=== PATIENT | female | born 1955 | race American Indian/Alaskan Native ===

== ENCOUNTER 2017-08-06 17:27 | Inpatient (IN) | payer OTHER ==
[2017-08-06] MEDS ORDERED: TYLENOL PO ONE (17:35)
[2017-08-06] MEDS ORDERED: TYLENOL ONE (17:35)
[2017-08-06] MEDS ORDERED: DUONEB *Not for PRN Use IH ONE ×2 (18:17→19:27)
--- NOTE | 2017-08-06 18:18 | Emergency Department Report ---
ED Shortness of Breath HPI - General Chief Complaint: Weakness Stated Complaint: N/V X 2 DAYS/FLU LIKE SYMPTOMS Time Seen by Provider: 08/06/17 18:10 Source: patient, EMS Mode of arrival: Stretcher Limitations: No Limitations - History of Present Illness MD Complaint: shortness of breath, cough -: Sudden, days(s) (3 days ago) Severity: severe Consistency: constant Improves With: oxygen, rest Worsens With: lying flat, exertion, coughing, inspiration Context: recent URI Associated Symptoms: fever, cough, sputum production, nausea/vomiting Treatments Prior to Arrival: none - Related Data Home Oxygen Therapy: No Allergies Allergy/AdvReac Type Severity Reaction Status Date / Time Penicillins Allergy Unknown Verified 08/06/17 17:56 ED Review of Systems ROS: Stated complaint: N/V X 2 DAYS/FLU LIKE SYMPTOMS Other details as noted in HPI Constitutional: chills, fever, malaise Eyes: denies: eye pain, eye discharge, vision change ENT: throat pain, congestion. denies: ear pain Respiratory: cough, orthopnea, shortness of breath, wheezing Cardiovascular: denies: chest pain, palpitations Endocrine: no symptoms reported Gastrointestinal: nausea, vomiting. denies: abdominal pain, diarrhea Genitourinary: denies: urgency, dysuria, discharge Musculoskeletal: denies: back pain, joint swelling, arthralgia Skin: denies: rash, lesions Neurological: denies: headache, weakness, paresthesias Psychiatric: denies: anxiety, depression Hematological/Lymphatic: denies: easy bleeding, easy bruising ED Past Medical Hx - Past Medical History Previous Medical History?: Yes Additional medical history: bone spurs, chronic back pain - Surgical History Past Surgical History?: Yes Additional Surgical History: back sx, tubal ligation - Family History Family history: hypertension - Social History Smoking Status: Never Smoker Substance Use Type: None ED Physical Exam - General Limitations: No Limitations General appearance: alert, in no apparent distress - Head Head exam: Present: atraumatic, normocephalic - Eye Eye exam: Present: normal appearance - ENT ENT exam: Present: mucous membranes dry - Neck Neck exam: Present: normal inspection - Respiratory Respiratory exam: Present: wheezes - Cardiovascular Cardiovascular Exam: Present: regular rate, normal rhythm. Absent: systolic murmur, diastolic murmur, rubs, gallop - GI/Abdominal GI/Abdominal exam: Present: soft, normal bowel sounds - Extremities Exam Extremities exam: Present: normal inspection - Back Exam Back exam: Present: normal inspection - Neurological Exam Neurological exam: Present: alert, oriented X3 - Psychiatric Psychiatric exam: Present: normal affect, normal mood - Skin Skin exam: Present: warm, dry, intact, normal color. Absent: rash ED Course Vital Signs 08/06/17 08/06/17 08/06/17 17:40 17:43 17:45 Temperature 102.4 F H Pulse Rate 74 74 73 Pulse Rate [ Anterior Bilateral Throughout] Respiratory 20 12 21 Rate Respiratory Rate [Anterior Bilateral Throughout] Blood Pressure 160/81 160/81 157/130 O2 Sat by Pulse 92 96 Oximetry 08/06/17 08/06/17 08/06/17 18:00 18:16 18:30 Temperature Pulse Rate 81 68 79 Pulse Rate [ Anterior Bilateral Throughout] Respiratory 14 17 17 Rate Respiratory Rate [Anterior Bilateral Throughout] Blood Pressure 157/130 144/80 144/80 O2 Sat by Pulse 96 94 95 Oximetry 08/06/17 08/06/17 08/06/17 18:35 18:46 18:51 Temperature Pulse Rate 73 Pulse Rate [ 69 70 Anterior Bilateral Throughout] Respiratory 13 Rate Respiratory 18 18 Rate [Anterior Bilateral Throughout] Blood Pressure O2 Sat by Pulse 94 Oximetry 08/06/17 08/06/17 08/06/17 19:00 19:20 19:30 Temperature Pulse Rate 85 80 78 Pulse Rate [ Anterior Bilateral Throughout] Respiratory 13 13 16 Rate Respiratory Rate [Anterior Bilateral Throughout] Blood Pressure 144/80 156/82 O2 Sat by Pulse 97 94 92 Oximetry 08/06/17 08/06/17 08/06/17 19:45 19:46 20:00 Temperature Pulse Rate 83 87 Pulse Rate [ 87 Anterior Bilateral Throughout] Respiratory 19 16 Rate Respiratory 14 Rate [Anterior Bilateral Throughout] Blood Pressure 149/82 149/82 O2 Sat by Pulse 93 89 Oximetry 08/06/17 08/06/17 08/06/17 20:01 20:03 20:04 Temperature 100 F H Pulse Rate Pulse Rate [ 92 H Anterior Bilateral Throughout] Respiratory 18 Rate Respiratory 18 Rate [Anterior Bilateral Throughout] Blood Pressure O2 Sat by Pulse 91 92 Oximetry 08/06/17 08/06/17 20:15 20:30 Temperature Pulse Rate 84 89 Pulse Rate [ Anterior Bilateral Throughout] Respiratory 25 H 25 H Rate Respiratory Rate [Anterior Bilateral Throughout] Blood Pressure 152/78 164/88 O2 Sat by Pulse Oximetry - Reevaluation(s) Reevaluation #1: 08/06/17 19:15... Patient is still wheezing bilaterally. Status post Medrol and nebs will order a mag run and repeat DuoNeb. And consult hospitalist for admission Reevaluation #2: Discussed case with hospitalist. Patient ready for admission. 08/06/17 21:24 ED Medical Decision Making - Lab Data Result diagrams: 08/06/17 18:15 08/06/17 18:15 - EKG Data -: EKG Interpreted by Mo EKG shows normal: sinus rhythm Rate: normal - EKG Data Interpretation: no acute changes - Radiology Data Radiology results: report reviewed, image reviewed - Medical Decision Making All labs and results discussed with patient. Patient agreed to be admitted. Hospitalist consult for admission. Hospitalist agreed to admit - Differential Diagnosis flu/ bronchitis. Pneumonia. Fever. URI. Critical Care Time: Yes Critical care attestation.: If time is entered above; I have spent that time in minutes in the direct care of this critically ill patient, excluding procedure time. Critical Care Time: 30 minutes spent for critical care time ED Disposition Clinical Impression: Hypoxia, Fever, Shortness of breath, Wheeze, Bronchitis, Flu Disposition: 09 OP ADMIT IP TO THIS HOSP Is pt being admited?: Yes Does the pt Need Aspirin: No Condition: Serious Time of Disposition: 19:28
[2017-08-06 18:42] LABS: Hematocrit 39.1 % (30.3-42.9); Hemoglobin 13.2 gm/dl (10.1-14.3); Mean Corpuscular HGB Conc 34 % (30-34); Mean Corpuscular Hemoglobin 29 pg (28-32); Mean Corpuscular Volume 85 fl (79-97); Platelet Count 218 K/mm3 (140-440); Red Cell Distribution Width 13.7 % (13.2-15.2)
[2017-08-06 18:56] LABS: BUN/Creatinine Ratio 25; Blood Urea Nitrogen 10 mg/dL (7-17); Calcium 8.7 mg/dL (8.4-10.2); Hemolysis Index 2
--- NOTE | 2017-08-06 19:09 | XRay Report ---
FINAL REPORT EXAM: XR CHEST 1V AP HISTORY: Shortness of breath TECHNIQUE: upright single view chest PRIORS: None. FINDINGS: Cardiac and mediastinal contours are unremarkable. No focal pulmonary infiltrate is identified. No pleural fluid collection seen. Pulmonary vasculature is unremarkable. IMPRESSION: Negative single-view chest
[2017-08-06] MEDS ORDERED: MAGNESIUM SULFATE 2GM/50ML 2 GM/50 ML BAG IV ONE (19:26)
[2017-08-06 19:30] LABS: Band Neutrophils # (Manual) 0.5 K/mm3; Eosinophils % (Manual) 0 % (0.0-4.3); Total Cells Counted 100
[2017-08-06 19:31] LABS: RBC Morphology Normal
[2017-08-06] MEDS ORDERED: DILAUDID IV ONE (19:51)
[2017-08-06] MEDS ORDERED: MILK OF MAGNESIA PO PRN (21:46)
[2017-08-06] MEDS ORDERED: DULCOLAX PR PRN (21:46)
[2017-08-06] MEDS ORDERED: TYLENOL PO PRN (21:46)
--- NOTE | 2017-08-06 21:48 | History and Physical Report ---
History of Present Illness Date of examination: 08/06/17 History of present illness: 62-year-old woman with a history of asthma, chronic pain comes emergency room with complaints of shortness of breath, nonproductive cough, fever chills that started on Monday. Also complaining of pain in the epigastric area which she described as a constant soreness, intensity 6/10, and the radiation, cannot identify exacerbating or relieving factors. Admits to nausea and vomiting, no diaphoresis or palpitation Review Of Systems: Constitutional: no weight loss Ears, eyes, nose, mouth and throat: no nasal congestion, no nasal discharge, no sinus pressure, blurry vision, diplopia Neck: No neck pain or rigidity. Cardiovascular: No chest pain, palpitations Respiratory:+ shortness of breath, cough Gastrointestinal: No abdominal pain, hematochezia Genitourinary : no dysuria, frequency , hematuria Musculoskeletal: no muscle ache Integumentary: no rash, no pruritis Neurological: no parathesias, focal weakness Endocrine: no cold or heat intolerance, no polyuria or polydipsia Hematologic/Lymphatic: no easy bruising, no easy bleeding, no gland swelling Allergic/Immunologic: no urticaria, no angioedema. PAST MEDICAL HISTORY:asthma, chronic pain PAST SURGICAL HISTORY: Tubal ligation, back surgery FAMILY HISTORY: Hypertension SOCIAL HISTORY: Denies alcohol, tobacco, drugs Medications and Allergies Allergies Allergy/AdvReac Type Severity Reaction Status Date / Time Penicillins Allergy Unknown Verified 08/06/17 17:56 Exam - Physical Exam Narrative exam: Gen. appearance: Patient lying in bed in no acute distress HEENT: Normocephalic/atraumatic, pupils equal round reactive to light, extra occular movement intact, no scleral icterus, no JVD or thyromegaly or nodule, neck is supple, mucous membrane moist, no erythema or exudate Heart: S1-S2, regular rate and rhythm Lungs: Rhonchi wheezing, bilateral breathing comfortable Abdomen: Positive bowel sounds, nontender, nondistended, no organomegaly Extremities: No edema, cyanosis, clubbing Neuro:: Oriented 3 , cranial nerves II-12 intact, speech, motor intact Skin: No rash, nodules, warm dry - Constitutional Vitals: Temp Pulse Resp BP Pulse Ox 100 F H 89 25 H 164/88 92 08/06/17 20:04 08/06/17 20:30 08/06/17 20:30 08/06/17 20:30 08/06/17 20:04 Results - Labs CBC & Chem 7: 08/06/17 18:15 08/06/17 18:15 Labs: Abnormal lab results 08/06/17 08/06/17 08/06/17 Range/Units 18:15 18:15 18:57 WBC 4.1 L (4.5-11.0) K/mm3 Lymphocytes % (Manual) 12.0 L (13.4-35.0) % Monocytes % (Manual) 19.0 H (0.0-7.3) % Lymphocytes # (Manual) 0.5 L (1.2-5.4) K/mm3 D-Dimer 413.78 H (0-234) ng/mlDDU Potassium 3.4 L (3.6-5.0) mmol/L Chloride 96.5 L (98-107) mmol/L Creatinine 0.4 L (0.7-1.2) mg/dL Glucose 108 H (65-100) mg/dL - Imaging and Cardiology EKG: image reviewed Chest x-ray: image reviewed Assessment and Plan Assessment Asthma exacerbation with bronchitis Elevated d-dimer Hypokalemia Chronic pain Plan Admit to medicine Start high-dose IV steroids, nebulizer treatments, IV antibiotic Obtain CAT scan of the chest, repeat potassium DVT prophylaxis
[2017-08-06] MEDS ORDERED: NACL ONE (21:50)
[2017-08-06] MEDS: LEVAQUIN 500MG/100ML 500 MG/100 ML BAG IV SCH (23:20)
--- NOTE | 2017-08-06 23:23 | Cat Scan Report ---
FINAL REPORT EXAM: CT ANGIO CHEST HISTORY: PE protocol TECHNIQUE: CT chest CT angiogram with reconstructions PRIORS: None. FINDINGS: There is no evidence of filling defect within the central pulmonary vasculature to suggest the presence of acute pulmonary embolus. No evidence of mediastinal pathologic lymph node enlargement Heart and great vessels are unremarkable. The aorta is normal in caliber. Linear opacity at the left lung base appears most consistent with an area of chronic parenchymal scarring. Noted is a calcified granuloma in the right middle lobe. No pleural fluid collection seen. No acute pulmonary abnormality noted. Visualized portion of the upper abdomen demonstrates no acute change. IMPRESSION: Negative. No CT evidence of acute pulmonary embolus
[2017-08-07] MEDS: DUONEB *Not for PRN Use IH SCH ×4 (03:48→21:20)
[2017-08-07 05:05] LABS: Basophils % (Auto) 0.2 % (0.0-1.8); Hematocrit 38.5 % (30.3-42.9); Hemoglobin 13.2 gm/dl (10.1-14.3); Lymphocytes # (Auto) 0.3 K/mm3 (1.2-5.4); Lymphocytes % (Auto) 8.9 % (13.4-35.0); Mean Corpuscular HGB Conc 34 % (30-34); Mean Corpuscular Hemoglobin 29 pg (28-32); Mean Corpuscular Volume 85 fl (79-97); Monocytes # (Auto) 0.2 K/mm3 (0.0-0.8); Monocytes % (Auto) 5.9 % (0.0-7.3); Platelet Count 213 K/mm3 (140-440); Red Blood Count 4.54 M/mm3 (3.65-5.03); Red Cell Distribution Width 13.7 % (13.2-15.2)
[2017-08-07 05:26] LABS: BUN/Creatinine Ratio 25; Blood Urea Nitrogen 10 mg/dL (7-17); Calcium 8.5 mg/dL (8.4-10.2); Hemolysis Index 4
[2017-08-07] MEDS: NACL 0.45% 1000 ML 1,000 ML IV SCH (06:36)
--- NOTE | 2017-08-07 08:34 | Progress Note ---
Assessment and Plan Assessment and plan: Acute hypoxemic hypercapneic respiratory failure. Cont O2 for supportive care. Bipap as clinically indicated Asthma exacerbation with bronchitis. Cont. steroids--decrease to 40mg TID, nebulizer rx, IV abx and supportive O2 Elevated d-dimer. CTA negative for PE Hypokalemia. Replete potassium History Interval history: Nl new issues overnight Hospitalist Physical - Constitutional Vitals: Temp Pulse Resp BP Pulse Ox 98.6 F 64 12 152/80 88 08/07/17 08:03 08/07/17 07:01 08/07/17 07:01 08/07/17 07:01 08/07/17 07:01 General appearance: Present: no acute distress, well-nourished - EENT Eyes: Present: PERRL, EOM intact ENT: hearing intact, clear oral mucosa, dentition normal - Neck Neck: Present: supple, normal ROM - Respiratory Respiratory effort: normal Respiratory: bilateral: rhonchi, wheezing - Cardiovascular Rhythm: regular Heart Sounds: Present: S1 & S2. Absent: gallop, rub - Extremities Extremities: no ischemia, No edema, Full ROM - Abdominal General gastrointestinal: soft, non-tender, non-distended, normal bowel sounds - Integumentary Integumentary: Present: clear, warm, dry - Neurologic Neurologic: CNII-XII intact, moves all extremities Results - Labs CBC & Chem 7: 08/07/17 04:37 08/07/17 04:37 Labs: Laboratory Last Values WBC 3.9 K/mm3 (4.5-11.0) L 08/07/17 04:37 RBC 4.54 M/mm3 (3.65-5.03) 08/07/17 04:37 Hgb 13.2 gm/dl (10.1-14.3) 08/07/17 04:37 Hct 38.5 % (30.3-42.9) 08/07/17 04:37 MCV 85 fl (79-97) 08/07/17 04:37 MCH 29 pg (28-32) 08/07/17 04:37 MCHC 34 % (30-34) 08/07/17 04:37 RDW 13.7 % (13.2-15.2) 08/07/17 04:37 Plt Count 213 K/mm3 (140-440) 08/07/17 04:37 Lymph % (Auto) 8.9 % (13.4-35.0) L 08/07/17 04:37 [place] % (Auto) 5.9 % (0.0-7.3) 08/07/17 04:37 Eos % (Auto) 0.0 % (0.0-4.3) 08/07/17 04:37 Baso % (Auto) 0.2 % (0.0-1.8) 08/07/17 04:37 Lymph # 0.3 K/mm3 (1.2-5.4) L 08/07/17 04:37 [place] # 0.2 K/mm3 (0.0-0.8) 08/07/17 04:37 Eos # 0.0 K/mm3 (0.0-0.4) 08/07/17 04:37 Baso # 0.0 K/mm3 (0.0-0.1) 08/07/17 04:37 Add Manual Diff Complete 08/06/17 18:15 Total Counted 100 08/06/17 18:15 Seg Neutrophils % 85.0 % (40.0-70.0) H 08/07/17 04:37 Seg Neuts % (Manual) 56.0 % (40.0-70.0) 08/06/17 18:15 Band Neutrophils % 12.0 % 08/06/17 18:15 Lymphocytes % (Manual) 12.0 % (13.4-35.0) L 08/06/17 18:15 Reactive Lymphs % (Man) 0 % 08/06/17 18:15 Monocytes % (Manual) 19.0 % (0.0-7.3) H 08/06/17 18:15 Eosinophils % (Manual) 0 % (0.0-4.3) 08/06/17 18:15 Basophils % (Manual) 1.0 % (0.0-1.8) 08/06/17 18:15 Metamyelocytes % 0 % 08/06/17 18:15 Myelocytes % 0 % 08/06/17 18:15 Promyelocytes % 0 % 08/06/17 18:15 Blast Cells % 0 % 08/06/17 18:15 Nucleated RBC % Not Reportable 08/06/17 18:15 Seg Neutrophils # 3.3 K/mm3 (1.8-7.7) 08/07/17 04:37 Seg Neutrophils # Man 2.3 K/mm3 (1.8-7.7) 08/06/17 18:15 Band Neutrophils # 0.5 K/mm3 08/06/17 18:15 Lymphocytes # (Manual) 0.5 K/mm3 (1.2-5.4) L 08/06/17 18:15 Abs React Lymphs (Man) 0.0 K/mm3 08/06/17 18:15 Monocytes # (Manual) 0.8 K/mm3 (0.0-0.8) 08/06/17 18:15 Eosinophils # (Manual) 0.0 K/mm3 (0.0-0.4) 08/06/17 18:15 Basophils # (Manual) 0.0 K/mm3 (0.0-0.1) 08/06/17 18:15 Metamyelocytes # 0.0 K/mm3 08/06/17 18:15 Myelocytes # 0.0 K/mm3 08/06/17 18:15 Promyelocytes # 0.0 K/mm3 08/06/17 18:15 Blast Cells # 0.0 K/mm3 08/06/17 18:15 WBC Morphology Not Reportable 08/06/17 18:15 Hypersegmented Neuts Not Reportable 08/06/17 18:15 Hyposegmented Neuts Not Reportable 08/06/17 18:15 Hypogranular Neuts Not Reportable 08/06/17 18:15 Smudge Cells Not Reportable 08/06/17 18:15 Toxic Granulation Not Reportable 08/06/17 18:15 Toxic Vacuolation Not Reportable 08/06/17 18:15 Dohle Bodies Not Reportable 08/06/17 18:15 Pelger-Huet Anomaly Not Reportable 08/06/17 18:15 [place] Rods Not Reportable 08/06/17 18:15 Platelet Estimate Appears normal 08/06/17 18:15 Clumped Platelets Not Reportable 08/06/17 18:15 Plt Clumps, EDTA Not Reportable 08/06/17 18:15 Large Platelets Not Reportable 08/06/17 18:15 Giant Platelets Not Reportable 08/06/17 18:15 Platelet Satelliting Not Reportable 08/06/17 18:15 Plt Morphology Comment Not Reportable 08/06/17 18:15 RBC Morphology Normal 08/06/17 18:15 Dimorphic RBCs Not Reportable 08/06/17 18:15 Polychromasia Not Reportable 08/06/17 18:15 Hypochromasia Not Reportable 08/06/17 18:15 Poikilocytosis Not Reportable 08/06/17 18:15 Anisocytosis Not Reportable 08/06/17 18:15 Microcytosis Not Reportable 08/06/17 18:15 Macrocytosis Not Reportable 08/06/17 18:15 Spherocytes Not Reportable 08/06/17 18:15 Pappenheimer Bodies Not Reportable 08/06/17 18:15 Sickle Cells Not Reportable 08/06/17 18:15 Target Cells Not Reportable 08/06/17 18:15 Tear Drop Cells Not Reportable 08/06/17 18:15 Ovalocytes Not Reportable 08/06/17 18:15 Helmet Cells Not Reportable 08/06/17 18:15 [place]val[place] Bodies Not Reportable 08/06/17 18:15 [place] Rings Not Reportable 08/06/17 18:15 [place] Cells Not Reportable 08/06/17 18:15 Bite Cells Not Reportable 08/06/17 18:15 Crenated Cell Not Reportable 08/06/17 18:15 Elliptocytes Not Reportable 08/06/17 18:15 Acanthocytes (Spur) Not Reportable 08/06/17 18:15 Rouleaux Not Reportable 08/06/17 18:15 Hemoglobin C Crystals Not Reportable 08/06/17 18:15 Schistocytes Not Reportable 08/06/17 18:15 Malaria parasites Not Reportable 08/06/17 18:15 Alex Bodies Not Reportable 08/06/17 18:15 Hem Pathologist Commnt No 08/06/17 18:15 D-Dimer 413.78 ng/mlDDU (0-234) H 08/06/17 18:57 Sodium 137 mmol/L (137-145) 08/07/17 04:37 Potassium 3.4 mmol/L (3.6-5.0) L 08/07/17 04:37 Chloride 94.4 mmol/L (98-107) L 08/07/17 04:37 Carbon Dioxide 25 mmol/L (22-30) 08/07/17 04:37 Anion Gap 21 mmol/L 08/07/17 04:37 BUN 10 mg/dL (7-17) 08/07/17 04:37 Creatinine 0.4 mg/dL (0.7-1.2) L 08/07/17 04:37 Estimated GFR > 60 ml/min 08/07/17 04:37 BUN/Creatinine Ratio 25 % 08/07/17 04:37 Glucose 148 mg/dL (65-100) H 08/07/17 04:37 Lactic Acid 0.90 mmol/L (0.7-2.0) 08/06/17 18:57 Calcium 8.5 mg/dL (8.4-10.2) 08/07/17 04:37 Magnesium 2.00 mg/dL (1.7-2.3) 08/06/17 18:15 Troponin T < 0.010 ng/mL (0.00-0.029) 08/06/17 18:15
[2017-08-07] MEDS ORDERED: MORPHINE ONE ×2 (10:00→19:04)
[2017-08-07] MEDS: MORPHINE IV PRN ×2 (10:18→19:14)
[2017-08-07] MEDS: ZOFRAN IV PRN (10:18)
[2017-08-07] MEDS: LEVAQUIN 500MG/100ML 500 MG/100 ML BAG IV SCH (10:22)
[2017-08-07] MEDS: LOVENOX SUB-Q SCH (11:17)
[2017-08-08] MEDS: NACL 0.45% 1000 ML 1,000 ML IV SCH (01:19)
[2017-08-08] MEDS: DUONEB *Not for PRN Use IH SCH ×4 (01:20→21:38)
[2017-08-08] MEDS: ZOFRAN IV PRN (02:34)
[2017-08-08 07:54] LABS: Basophils % (Auto) 0.1 % (0.0-1.8); Hematocrit 39.2 % (30.3-42.9); Hemoglobin 13.4 gm/dl (10.1-14.3); Lymphocytes # (Auto) 0.6 K/mm3 (1.2-5.4); Lymphocytes % (Auto) 8.7 % (13.4-35.0); Mean Corpuscular HGB Conc 34 % (30-34); Mean Corpuscular Hemoglobin 29 pg (28-32); Mean Corpuscular Volume 85 fl (79-97); Monocytes # (Auto) 0.6 K/mm3 (0.0-0.8); Monocytes % (Auto) 8.2 % (0.0-7.3); Platelet Count 223 K/mm3 (140-440); Red Blood Count 4.62 M/mm3 (3.65-5.03); Red Cell Distribution Width 13.4 % (13.2-15.2)
[2017-08-08 08:18] LABS: BUN/Creatinine Ratio 20; Blood Urea Nitrogen 10 mg/dL (7-17); Calcium 8.8 mg/dL (8.4-10.2); Hemolysis Index 5
[2017-08-08] MEDS: LEVAQUIN 500MG/100ML 500 MG/100 ML BAG IV SCH (10:36)
[2017-08-08] MEDS: LOVENOX SUB-Q SCH (10:36)
[2017-08-08] MEDS ORDERED: K-DUR PO ONE (12:00)
[2017-08-08] MEDS ORDERED: PNEUMOVAX 23 IM ONE (12:00)
[2017-08-08] MEDS ORDERED: Fluarix Quad 2017-2018(36 MOS+ IM ONE (12:00)
--- NOTE | 2017-08-08 14:52 | Progress Note ---
Assessment and Plan Assessment and plan: 62-year-old woman with a history of asthma, chronic pain comes emergency room with complaints of shortness of breath, nonproductive cough, fever chills that started on Monday. Also complaining of pain in the epigastric area which she described as a constant soreness, intensity 6/10, and the radiation, cannot identify exacerbating or relieving factors. Admits to nausea and vomiting, no diaphoresis or palpitation Acute hypoxemic hypercapneic respiratory failure. Cont O2 for supportive care. Bipap as clinically indicated Asthma exacerbation with bronchitis. Cont. steroids--decrease, nebulizer rx, IV abx and supportive O2 Presumed influenza: We'll start on Tamiflu keep on isolation and obtain the flu tests. Elevated d-dimer. CTA negative for PE Hypokalemia. Replete potassium DVT and GI prophylaxis Plan of care discussed in detail with the patient History Interval history: Patient is seen today for: Fever and Shortness of breath Seen and examined at bedside; 24hour events reviewed; nursing staff ; no adverse overnight events reported to me; Denies any chest pain, nausea, vomiting , diarrhea No fever noted blood pressure controlled Hospitalist Physical - Physical exam Narrative exam: VITAL SIGNS: Reviewed. GENERAL: The patient appeared well nourished and normally developed. Vital signs as documented. HEAD: No signs of head trauma. EYES: Pupils are equal. Extraocular motions intact. EARS: Hearing grossly intact. MOUTH: Oropharynx is normal. NECK: No adenopathy, no JVD. CHEST: Chest with clear breath sounds bilaterally. No wheezes, rales, or rhonchi. CARDIAC: Regular rate and rhythm. S1 and S2, without murmurs, gallops, or rubs. VASCULAR: No Edema. Peripheral pulses normal and equal in all extremities. ABDOMEN: Soft, without detectable tenderness. No sign of distention. No rebound or guarding, and no masses palpated. Bowel Sounds normal. MUSCULOSKELETAL: Good range of motion of all major joints. Extremities without clubbing, cyanosis or edema. NEUROLOGIC EXAM: Alert and oriented x 3. No focal sensory or strength deficits. Speech normal. Follows commands. PSYCHIATRIC: Mood normal. SKIN: No rash or lesions. - Constitutional Vitals: Temp Pulse Resp BP Pulse Ox 98.4 F 87 18 112/73 93 08/08/17 12:24 08/08/17 12:24 08/08/17 12:24 08/08/17 12:24 08/08/17 09:33 General appearance: Present: no acute distress, well-nourished Results - Labs CBC & Chem 7: 08/08/17 06:26 08/08/17 06:26 Labs: Laboratory Last Values WBC 7.1 K/mm3 (4.5-11.0) 08/08/17 06:26 RBC 4.62 M/mm3 (3.65-5.03) 08/08/17 06:26 Hgb 13.4 gm/dl (10.1-14.3) 08/08/17 06:26 Hct 39.2 % (30.3-42.9) 08/08/17 06:26 MCV 85 fl (79-97) 08/08/17 06:26 MCH 29 pg (28-32) 08/08/17 06:26 MCHC 34 % (30-34) 08/08/17 06:26 RDW 13.4 % (13.2-15.2) 08/08/17 06:26 Plt Count 223 K/mm3 (140-440) 08/08/17 06:26 Lymph % (Auto) 8.7 % (13.4-35.0) L 08/08/17 06:26 [place] % (Auto) 8.2 % (0.0-7.3) H 08/08/17 06:26 Eos % (Auto) 0.0 % (0.0-4.3) 08/08/17 06:26 Baso % (Auto) 0.1 % (0.0-1.8) 08/08/17 06:26 Lymph # 0.6 K/mm3 (1.2-5.4) L 08/08/17 06:26 [place] # 0.6 K/mm3 (0.0-0.8) 08/08/17 06:26 Eos # 0.0 K/mm3 (0.0-0.4) 08/08/17 06:26 Baso # 0.0 K/mm3 (0.0-0.1) 08/08/17 06:26 Add Manual Diff Complete 08/06/17 18:15 Total Counted 100 08/06/17 18:15 Seg Neutrophils % 83.0 % (40.0-70.0) H 02/13/18 06:26 Seg Neuts % (Manual) 56.0 % (40.0-70.0) 08/06/17 18:15 Band Neutrophils % 12.0 % 08/06/17 18:15 Lymphocytes % (Manual) 12.0 % (13.4-35.0) L 08/06/17 18:15 Reactive Lymphs % (Man) 0 % 08/06/17 18:15 Monocytes % (Manual) 19.0 % (0.0-7.3) H 08/06/17 18:15 Eosinophils % (Manual) 0 % (0.0-4.3) 08/06/17 18:15 Basophils % (Manual) 1.0 % (0.0-1.8) 08/06/17 18:15 Metamyelocytes % 0 % 08/06/17 18:15 Myelocytes % 0 % 08/06/17 18:15 Promyelocytes % 0 % 08/06/17 18:15 Blast Cells % 0 % 08/06/17 18:15 Nucleated RBC % Not Reportable 08/06/17 18:15 Seg Neutrophils # 5.9 K/mm3 (1.8-7.7) 08/08/17 06:26 Seg Neutrophils # Man 2.3 K/mm3 (1.8-7.7) 08/06/17 18:15 Band Neutrophils # 0.5 K/mm3 08/06/17 18:15 Lymphocytes # (Manual) 0.5 K/mm3 (1.2-5.4) L 08/06/17 18:15 Abs React Lymphs (Man) 0.0 K/mm3 08/06/17 18:15 Monocytes # (Manual) 0.8 K/mm3 (0.0-0.8) 08/06/17 18:15 Eosinophils # (Manual) 0.0 K/mm3 (0.0-0.4) 08/06/17 18:15 Basophils # (Manual) 0.0 K/mm3 (0.0-0.1) 08/06/17 18:15 Metamyelocytes # 0.0 K/mm3 08/06/17 18:15 Myelocytes # 0.0 K/mm3 08/06/17 18:15 Promyelocytes # 0.0 K/mm3 08/06/17 18:15 Blast Cells # 0.0 K/mm3 08/06/17 18:15 WBC Morphology Not Reportable 08/06/17 18:15 Hypersegmented Neuts Not Reportable 08/06/17 18:15 Hyposegmented Neuts Not Reportable 08/06/17 18:15 Hypogranular Neuts Not Reportable 08/06/17 18:15 Smudge Cells Not Reportable 08/06/17 18:15 Toxic Granulation Not Reportable 08/06/17 18:15 Toxic Vacuolation Not Reportable 08/06/17 18:15 Dohle Bodies Not Reportable 08/06/17 18:15 Pelger-Huet Anomaly Not Reportable 08/06/17 18:15 Erin Rods Not Reportable 08/06/17 18:15 Platelet Estimate Appears normal 08/06/17 18:15 Clumped Platelets Not Reportable 08/06/17 18:15 Plt Clumps, EDTA Not Reportable 08/06/17 18:15 Large Platelets Not Reportable 08/06/17 18:15 Giant Platelets Not Reportable 08/06/17 18:15 Platelet Satelliting Not Reportable 08/06/17 18:15 Plt Morphology Comment Not Reportable 08/06/17 18:15 RBC Morphology Normal 08/06/17 18:15 Dimorphic RBCs Not Reportable 08/06/17 18:15 Polychromasia Not Reportable 08/06/17 18:15 Hypochromasia Not Reportable 08/06/17 18:15 Poikilocytosis Not Reportable 08/06/17 18:15 Anisocytosis Not Reportable 08/06/17 18:15 Microcytosis Not Reportable 08/06/17 18:15 Macrocytosis Not Reportable 08/06/17 18:15 Spherocytes Not Reportable 08/06/17 18:15 Pappenheimer Bodies Not Reportable 08/06/17 18:15 Sickle Cells Not Reportable 08/06/17 18:15 Target Cells Not Reportable 08/06/17 18:15 Tear Drop Cells Not Reportable 08/06/17 18:15 Ovalocytes Not Reportable 08/06/17 18:15 Helmet Cells Not Reportable 08/06/17 18:15 Aval[place] Bodies Not Reportable 08/06/17 18:15 [place] Rings Not Reportable 08/06/17 18:15 [place] Cells Not Reportable 08/06/17 18:15 Bite Cells Not Reportable 08/06/17 18:15 Crenated Cell Not Reportable 08/06/17 18:15 Elliptocytes Not Reportable 08/06/17 18:15 Acanthocytes (Spur) Not Reportable 08/06/17 18:15 Rouleaux Not Reportable 08/06/17 18:15 Hemoglobin C Crystals Not Reportable 08/06/17 18:15 Schistocytes Not Reportable 08/06/17 18:15 Malaria parasites Not Reportable 08/06/17 18:15 Alex Bodies Not Reportable 08/06/17 18:15 Hem Pathologist Commnt No 08/06/17 18:15 D-Dimer 413.78 ng/mlDDU (0-234) H 08/06/17 18:57 Sodium 140 mmol/L (137-145) 08/08/17 06:26 Potassium 3.5 mmol/L (3.6-5.0) L 08/08/17 06:26 Chloride 98.4 mmol/L (98-107) 08/08/17 06:26 Carbon Dioxide 26 mmol/L (22-30) 08/08/17 06:26 Anion Gap 19 mmol/L 08/08/17 06:26 BUN 10 mg/dL (7-17) 08/08/17 06:26 Creatinine 0.5 mg/dL (0.7-1.2) L 08/08/17 06:26 Estimated GFR > 60 ml/min 08/08/17 06:26 BUN/Creatinine Ratio 20 % 08/08/17 06:26 Glucose 135 mg/dL (65-100) H 08/08/17 06:26 POC Glucose 252 (70-105) H 08/08/17 11:05 Lactic Acid 0.90 mmol/L (0.7-2.0) 08/06/17 18:57 Calcium 8.8 mg/dL (8.4-10.2) 08/08/17 06:26 Magnesium 2.00 mg/dL (1.7-2.3) 08/06/17 18:15 Troponin T < 0.010 ng/mL (0.00-0.029) 08/06/17 18:15 - Imaging and Cardiology Chest x-ray: image reviewed (old scarring in the lungs)
[2017-08-08] MEDS: TAMIFLU PO SCH ×2 (15:48→23:54)
[2017-08-08] MEDS: DETROL LA PO SCH (15:49)
[2017-08-08] MEDS: MORPHINE IV PRN (17:53)
[2017-08-09] MEDS: DUONEB *Not for PRN Use IH SCH ×4 (01:54→19:33)
[2017-08-09] MEDS: DETROL LA PO SCH (10:33)
[2017-08-09] MEDS: LEVAQUIN PO SCH (10:34)
[2017-08-09] MEDS: LOVENOX SUB-Q SCH (10:34)
[2017-08-09] MEDS: BROVANA NEBU IH SCH ×2 (13:58→19:28)
[2017-08-09] MEDS: PULMICORT IH SCH ×2 (13:59→19:29)
--- NOTE | 2017-08-09 16:52 | Progress Note ---
Assessment and Plan Assessment and plan: 62-year-old woman with a history of asthma, chronic pain comes emergency room with complaints of shortness of breath, nonproductive cough, fever chills that started on Rob. Also complaining of pain in the epigastric area which she described as a constant soreness, intensity 6/10, and the radiation, cannot identify exacerbating or relieving factors. Admits to nausea and vomiting, no diaphoresis or palpitation Acute hypoxemic hypercapneic respiratory failure. Cont O2 for supportive care. Bipap as clinically indicated Asthma exacerbation with bronchitis. Cont. steroids--decrease, nebulizer rx, IV abx and supportive O2 Presumed influenza: Continue Tamiflu keep on isolation and obtain the flu tests. Elevated d-dimer. CTA negative for PE Hypokalemia. Replete potassium DVT and GI prophylaxis Plan of care discussed in detail with the patient History Interval history: Patient is seen today for: Fever and Shortness of breath Seen and examined at bedside; 24hour events reviewed; nursing staff ; no adverse overnight events reported to me; Denies any chest pain, nausea, vomiting , diarrhea No fever noted blood pressure controlled. Reports still wheezing Hospitalist Physical - Physical exam Narrative exam: VITAL SIGNS: Reviewed. GENERAL: The patient appeared well nourished and normally developed. Vital signs as documented. HEAD: No signs of head trauma. EYES: Pupils are equal. Extraocular motions intact. EARS: Hearing grossly intact. MOUTH: Oropharynx is normal. NECK: No adenopathy, no JVD. CHEST: Chest with wheezing bilaterally, expiratory more than inspiratory CARDIAC: Regular rate and rhythm. S1 and S2, without murmurs, gallops, or rubs. VASCULAR: No Edema. Peripheral pulses normal and equal in all extremities. ABDOMEN: Soft, without detectable tenderness. No sign of distention. No rebound or guarding, and no masses palpated. Bowel Sounds normal. MUSCULOSKELETAL: Good range of motion of all major joints. Extremities without clubbing, cyanosis or edema. NEUROLOGIC EXAM: Alert and oriented x 3. No focal sensory or strength deficits. Speech normal. Follows commands. PSYCHIATRIC: Mood normal. SKIN: No rash or lesions. - Constitutional Vitals: Temp Pulse Resp BP Pulse Ox 99.3 F 94 H 20 133/65 86 08/09/17 08:28 08/09/17 13:48 08/09/17 13:48 08/09/17 08:28 08/09/17 08:28 General appearance: Present: no acute distress, well-nourished Results - Labs CBC & Chem 7: 08/08/17 06:26 08/08/17 06:26 Labs: Laboratory Last Values WBC 7.1 K/mm3 (4.5-11.0) 08/08/17 06:26 RBC 4.62 M/mm3 (3.65-5.03) 08/08/17 06:26 Hgb 13.4 gm/dl (10.1-14.3) 08/08/17 06:26 Hct 39.2 % (30.3-42.9) 08/08/17 06:26 MCV 85 fl (79-97) 08/08/17 06:26 MCH 29 pg (28-32) 08/08/17 06:26 MCHC 34 % (30-34) 08/08/17 06:26 RDW 13.4 % (13.2-15.2) 08/08/17 06:26 Plt Count 223 K/mm3 (140-440) 08/08/17 06:26 Lymph % (Auto) 8.7 % (13.4-35.0) L 08/08/17 06:26 [place] % (Auto) 8.2 % (0.0-7.3) H 08/08/17 06:26 Eos % (Auto) 0.0 % (0.0-4.3) 08/08/17 06:26 Baso % (Auto) 0.1 % (0.0-1.8) 08/08/17 06:26 Lymph # 0.6 K/mm3 (1.2-5.4) L 08/08/17 06:26 [place] # 0.6 K/mm3 (0.0-0.8) 08/08/17 06:26 Eos # 0.0 K/mm3 (0.0-0.4) 08/08/17 06:26 Baso # 0.0 K/mm3 (0.0-0.1) 08/08/17 06:26 Add Manual Diff Complete 08/06/17 18:15 Total Counted 100 08/06/17 18:15 Seg Neutrophils % 83.0 % (40.0-70.0) H 08/08/17 06:26 Seg Neuts % (Manual) 56.0 % (40.0-70.0) 08/06/17 18:15 Band Neutrophils % 12.0 % 08/06/17 18:15 Lymphocytes % (Manual) 12.0 % (13.4-35.0) L 08/06/17 18:15 Reactive Lymphs % (Man) 0 % 08/06/17 18:15 Monocytes % (Manual) 19.0 % (0.0-7.3) H 08/06/17 18:15 Eosinophils % (Manual) 0 % (0.0-4.3) 08/06/17 18:15 Basophils % (Manual) 1.0 % (0.0-1.8) 08/06/17 18:15 Metamyelocytes % 0 % 08/06/17 18:15 Myelocytes % 0 % 08/06/17 18:15 Promyelocytes % 0 % 08/06/17 18:15 Blast Cells % 0 % 08/06/17 18:15 Nucleated RBC % Not Reportable 08/06/17 18:15 Seg Neutrophils # 5.9 K/mm3 (1.8-7.7) 08/08/17 06:26 Seg Neutrophils # Man 2.3 K/mm3 (1.8-7.7) 08/06/17 18:15 Band Neutrophils # 0.5 K/mm3 08/06/17 18:15 Lymphocytes # (Manual) 0.5 K/mm3 (1.2-5.4) L 08/06/17 18:15 Abs React Lymphs (Man) 0.0 K/mm3 08/06/17 18:15 Monocytes # (Manual) 0.8 K/mm3 (0.0-0.8) 08/06/17 18:15 Eosinophils # (Manual) 0.0 K/mm3 (0.0-0.4) 08/06/17 18:15 Basophils # (Manual) 0.0 K/mm3 (0.0-0.1) 08/06/17 18:15 Metamyelocytes # 0.0 K/mm3 08/06/17 18:15 Myelocytes # 0.0 K/mm3 08/06/17 18:15 Promyelocytes # 0.0 K/mm3 08/06/17 18:15 Blast Cells # 0.0 K/mm3 08/06/17 18:15 WBC Morphology Not Reportable 08/06/17 18:15 Hypersegmented Neuts Not Reportable 08/06/17 18:15 Hyposegmented Neuts Not Reportable 08/06/17 18:15 Hypogranular Neuts Not Reportable 08/06/17 18:15 Smudge Cells Not Reportable 08/06/17 18:15 Toxic Granulation Not Reportable 08/06/17 18:15 Toxic Vacuolation Not Reportable 08/06/17 18:15 Dohle Bodies Not Reportable 08/06/17 18:15 Pelger-Huet Anomaly Not Reportable 08/06/17 18:15 Erin Rods Not Reportable 08/06/17 18:15 Platelet Estimate Appears normal 08/06/17 18:15 Clumped Platelets Not Reportable 08/06/17 18:15 Plt Clumps, EDTA Not Reportable 08/06/17 18:15 Large Platelets Not Reportable 08/06/17 18:15 Giant Platelets Not Reportable 08/06/17 18:15 Platelet Satelliting Not Reportable 08/06/17 18:15 Plt Morphology Comment Not Reportable 08/06/17 18:15 RBC Morphology Normal 08/06/17 18:15 Dimorphic RBCs Not Reportable 08/06/17 18:15 Polychromasia Not Reportable 08/06/17 18:15 Hypochromasia Not Reportable 08/06/17 18:15 Poikilocytosis Not Reportable 08/06/17 18:15 Anisocytosis Not Reportable 08/06/17 18:15 Microcytosis Not Reportable 08/06/17 18:15 Macrocytosis Not Reportable 08/06/17 18:15 Spherocytes Not Reportable 08/06/17 18:15 Pappenheimer Bodies Not Reportable 08/06/17 18:15 Sickle Cells Not Reportable 08/06/17 18:15 Target Cells Not Reportable 08/06/17 18:15 Tear Drop Cells Not Reportable 08/06/17 18:15 Ovalocytes Not Reportable 08/06/17 18:15 Helmet Cells Not Reportable 08/06/17 18:15 Avalos-Kemmerer Bodies Not Reportable 08/06/17 18:15 Sunburst Rings Not Reportable 08/06/17 18:15 Rocky Cells Not Reportable 08/06/17 18:15 Bite Cells Not Reportable 08/06/17 18:15 Crenated Cell Not Reportable 08/06/17 18:15 Elliptocytes Not Reportable 08/06/17 18:15 Acanthocytes (Spur) Not Reportable 08/06/17 18:15 Rouleaux Not Reportable 08/06/17 18:15 Hemoglobin C Crystals Not Reportable 08/06/17 18:15 Schistocytes Not Reportable 08/06/17 18:15 Malaria parasites Not Reportable 08/06/17 18:15 Alex Bodies Not Reportable 08/06/17 18:15 Hem Pathologist Commnt No 08/06/17 18:15 D-Dimer 413.78 ng/mlDDU (0-234) H 08/06/17 18:57 Sodium 140 mmol/L (137-145) 08/08/17 06:26 Potassium 3.5 mmol/L (3.6-5.0) L 08/08/17 06:26 Chloride 98.4 mmol/L (98-107) 08/08/17 06:26 Carbon Dioxide 26 mmol/L (22-30) 08/08/17 06:26 Anion Gap 19 mmol/L 08/08/17 06:26 BUN 10 mg/dL (7-17) 08/08/17 06:26 Creatinine 0.5 mg/dL (0.7-1.2) L 08/08/17 06:26 Estimated GFR > 60 ml/min 08/08/17 06:26 BUN/Creatinine Ratio 20 % 08/08/17 06:26 Glucose 135 mg/dL (65-100) H 08/08/17 06:26 POC Glucose 122 (70-105) H 08/08/17 16:03 Lactic Acid 0.90 mmol/L (0.7-2.0) 08/06/17 18:57 Calcium 8.8 mg/dL (8.4-10.2) 08/08/17 06:26 Magnesium 2.00 mg/dL (1.7-2.3) 08/06/17 18:15 Troponin T < 0.010 ng/mL (0.00-0.029) 08/06/17 18:15
[2017-08-09] MEDS: TAMIFLU PO SCH ×2 (17:40→23:53)
[2017-08-09] MEDS: MORPHINE IV PRN ×2 (17:41→23:53)
[2017-08-10] MEDS: DUONEB *Not for PRN Use IH SCH ×3 (02:17→13:28)
[2017-08-10 06:43] LABS: BUN/Creatinine Ratio 18; Blood Urea Nitrogen 9 mg/dL (7-17); Calcium 8.8 mg/dL (8.4-10.2); Hemolysis Index 8
[2017-08-10] MEDS: PULMICORT IH SCH (07:29)
[2017-08-10] MEDS: BROVANA NEBU IH SCH (07:29)
[2017-08-10] MEDS: LEVAQUIN PO SCH (10:06)
[2017-08-10] MEDS: DETROL LA PO SCH (10:07)
[2017-08-10] MEDS: TAMIFLU PO SCH (10:07)
[2017-08-10] MEDS: LOVENOX SUB-Q SCH (10:07)
--- NOTE | 2017-08-10 11:03 | Discharge Summary ---
Providers - Providers Date of Admission: 08/06/17 21:46 Attending physician: AILYN CHANG MD 08/08/17 01:18 Consult to Dietitian/Nutrition [CONS] Routine Physician Instructions: Reports poor appetite due to illness and weight lo Reason For Exam: Reason for Consult: Poor oral intake Primary care physician: BUDDY GREGORY Hospitalization Reason for admission: shortness of breath Condition: Serious Hospital course: 62-year-old woman with a history of asthma, chronic pain comes emergency room with complaints of shortness of breath, nonproductive cough, fever chills that started on Monday. Also complaining of pain in the epigastric area which she described as a constant soreness, intensity 6/10, and the radiation, cannot identify exacerbating or relieving factors. Admits to nausea and vomiting, no diaphoresis or palpitation. The patient was started on treatment for hypoxemic/ hypercapnic respiratory failure she improved significantly. No further BiPAP were applied. I did recommend an outpatient pulmonary valve. She also was treated with steroids which was tapered. She likely will need nebulizer on discharge. She did have elevated d-dimer for which a CT was done and was negative nose no clinical evidence of DVT. I did recommend age-appropriate cancer screening with GI outpatient. She is clinically stable on this for for discharge Discharge diagnosis Acute hypoxemic hypercapneic respiratory failure. Asthma exacerbation with bronchitis. Presumed influenza: Elevated d-dimer. Hypokalemia. Disposition: - TO HOME OR SELFCARE Time spent for discharge: 35 MINS Core Measure Documentation - Palliative Care Palliative Care/ Comfort Measures: Not Applicable - Core Measures Any of the following diagnoses?: none - VTE Discharge Requirements Deep Vein Thrombosis/Pulmonary Embolism Present on Admission: No Exam - Physical Exam Narrative exam: VITAL SIGNS: Reviewed. GENERAL: The patient appeared well nourished and normally developed. Vital signs as documented. HEAD: No signs of head trauma. EYES: Pupils are equal. Extraocular motions intact. EARS: Hearing grossly intact. MOUTH: Oropharynx is normal. NECK: No adenopathy, no JVD. CHEST: Chest with wheezing bilaterally, expiratory more than inspiratory. Much improved today. CARDIAC: Regular rate and rhythm. S1 and S2, without murmurs, gallops, or rubs. VASCULAR: No Edema. Peripheral pulses normal and equal in all extremities. ABDOMEN: Soft, without detectable tenderness. No sign of distention. No rebound or guarding, and no masses palpated. Bowel Sounds normal. MUSCULOSKELETAL: Good range of motion of all major joints. Extremities without clubbing, cyanosis or edema. NEUROLOGIC EXAM: Alert and oriented x 3. No focal sensory or strength deficits. Speech normal. Follows commands. PSYCHIATRIC: Mood normal. SKIN: No rash or lesions. - Constitutional Vitals: Temp Pulse Resp BP Pulse Ox 97.4 F L 79 18 129/75 96 08/09/17 19:34 08/10/17 07:40 08/10/17 07:40 08/09/17 19:34 08/10/17 07:31 Plan Activity: advance as tolerated, fall precautions Diet: low cholesterol Special Instructions: record daily BP diary Follow up with: BUDDY GREGORY MD [Primary Care Provider] - 3-5 Days AGATHA SALCEDO MD [Staff Physician] - 7 Days OG LAL MD [Staff Physician] - 7 Days Prescriptions: ALBUTEROL Inhaler [ProAir HFA Inhaler] 2 puff IH QID PRN #1 inhalation PRN Reason: Shortness Of Breath Ipratropium/Albuterol Sulfate [DUONEB *Not for PRN Use*] 1 ampul IH Q6HRT #90 ampul.neb Levofloxacin [Levaquin TAB] 500 mg PO Q24HR #7 tablet Oseltamivir [Tamiflu] 75 mg PO BID #8 capsule Tolterodine [Detrol LA] 2 mg PO QDAY #10 capsule
[2017-08-10 11:59] VITALS: BP 142/67
[2017-08-10] MEDS ORDERED: Fluarix Quad 2017-2018(36 MOS+ IM ONE (12:00)
[2017-08-10] MEDS ORDERED: PNEUMOVAX 23 IM ONE (12:00)
== END 2017-08-10 15:00 | disposition home or self-care (01) | DRG 189 ==
LOC: ED 17:27 → 4A 21:46 → 3A 08-08 17:14
PROVIDERS: ADMIT Internal Medicine; ATTEND Internal Medicine
PROC: 3E0234Z Introduction of Serum, Toxoid and Vaccine into Muscle, Percutaneous Approach (ICD-10-PCS; principal; 2017-08-08)
DX: J96.01 Acute respiratory failure with hypoxia (principal); J45.901 Unspecified asthma with (acute) exacerbation; J96.02 Acute respiratory failure with hypercapnia; G89.29 Other chronic pain; J11.1 Influenza due to unidentified influenza virus with other respiratory manifestations; E87.6 Hypokalemia; Z23 Encounter for immunization; Z88.0 Allergy status to penicillin; Z98.51 Tubal ligation status; Z82.49 Family history of ischemic heart disease and other diseases of the circulatory system
CPT/HCPCS: 36415; 71045; 71275; 80048; 82140; 82962; 83735; 84484; 85007; 85025; 85379; 87040; 90686; 90732; 93005; 93010; 94640; 94760; 96374; 96375; 99291; J1170; J1650; J1956; J2270; J2405; J2920; J2930; J3475; Q9967